=== PATIENT | male | born 1950 | race Caucasian/White ===

== ENCOUNTER 2023-06-18 08:25 | Day surgery (SDC) | payer MEDICARE ==
[2023-06-17 12:46] VITALS: BMI 21.7
[2023-06-18] MEDS ORDERED: PROPOFOL 20 ML ONE (10:54)
[2023-06-18] MEDS ORDERED: Bupivacaine 0.25% HCL 30 ML VIAL ONE (11:30)
[2023-06-18] MEDS ORDERED: EPINEPHrine 1 MG/ML VIAL ONE (11:30)
[2023-06-18] MEDS ORDERED: fentaNYL PF 100 MCG/2 ML SYRINGE ONE ×2 (11:31→14:14)
[2023-06-18] MEDS ORDERED: Sodium Chloride 0.9% 100 ML ONE (11:39)
[2023-06-18] MEDS ORDERED: CEFAZOLIN 2 GM VIAL ONE (11:39)
[2023-06-18] MEDS ORDERED: ePHEDrine Sulfate 50 MG/10 ML VIAL ONE (12:06)
[2023-06-18] MEDS ORDERED: Lidocaine 1% PF 5 ML VIAL ONE (12:06)
[2023-06-18] MEDS ORDERED: Dexamethasone 4 mg/ml Vial ONE (12:06)
[2023-06-18] MEDS ORDERED: Rocuronium Bromide 10 MG/ML (10ML VIAL) ONE (12:06)
[2023-06-18] MEDS ORDERED: Labetalol HCl 100 MG/20 ML VIAL ONE (12:14)
[2023-06-18] MEDS ORDERED: Ondansetron PF 4 MG/2 ML Vial ONE (13:44)
[2023-06-18] MEDS ORDERED: NEOSTIGMINE 3 MG/3 ML SYR 3 MG/3 ML SYRINGE ONE (13:56)
[2023-06-18] MEDS ORDERED: Glycopyrrolate 0.2 MG/ML 5 ML SYRINGE ONE (13:56)
[2023-06-18] MEDS ORDERED: fentaNYL 50 mcg/mL 1 mL Vial ONE (14:49)
[2023-06-18] MEDS ORDERED: HYDROcodone/Acetaminophen 5/325 mg Tablet ONE (15:24)
== END 2023-06-18 16:03 | disposition home or self-care (01) ==
LOC: SDC 08:25
PROVIDERS: ATTEND Surgery
PROC: 0YUA4JZ Supplement Bilateral Inguinal Region with Synthetic Substitute, Percutaneous Endoscopic Approach (ICD-10-PCS; principal; 2023-06-18)
DX: K40.20 Bilateral inguinal hernia, without obstruction or gangrene, not specified as recurrent (principal); M19.90 Unspecified osteoarthritis, unspecified site; E11.9 Type 2 diabetes mellitus without complications; Z79.899 Other long term (current) drug therapy
CPT/HCPCS: 49650; A4314; C1781 ×2; J0171; J3010; J1100; J2405; J2704; J3490; S0020

== ENCOUNTER 2023-12-04 05:35 | Day surgery (SDC) | payer MEDICARE ==
[2023-12-03 10:04] VITALS: BMI 20.3
[2023-12-04] MEDS ORDERED: Lidocaine 1% w/Epinephrine 1:100K 20 ML VIAL ONE (07:03)
== END 2023-12-04 08:14 | disposition home or self-care (01) ==
LOC: SDC 05:35
PROVIDERS: ATTEND Internal Medicine Cardiovascular Disease
PROC: 0JH602Z Insertion of Monitoring Device into Chest Subcutaneous Tissue and Fascia, Open Approach (ICD-10-PCS; principal; 2023-12-04)
DX: I48.0 Paroxysmal atrial fibrillation (principal); R55 Syncope and collapse; I49.5 Sick sinus syndrome; R53.81 Other malaise; R53.83 Other fatigue; I25.10 Atherosclerotic heart disease of native coronary artery without angina pectoris; E11.9 Type 2 diabetes mellitus without complications; E78.2 Mixed hyperlipidemia; Z79.01 Long term (current) use of anticoagulants; Z87.891 Personal history of nicotine dependence; Z86.73 Personal history of transient ischemic attack (TIA), and cerebral infarction without residual deficits; Z79.899 Other long term (current) drug therapy
CPT/HCPCS: 33285